=== PATIENT | male | born 1980 | race Two or more races ===

== ENCOUNTER → 2017-05-01 | Outpatient (CLI) | payer OTHER ==
[~2017-05-01] VITALS: Ht 152.4 cm; Wt 81.6 kg
[~2017-05-01] MED LIST: CIPRO500 MG PO; IMODIUM A-D2 MG PO; INTESTINEX1 CAP PO; PHENERGAN25 MG PO; SEPTRA DS TABLE1 TAB PO; TUSSI PRES-B L120 M1 PO; ZANTAC300 MG PO; [UNRECOGNIZED DRUG - OTHER] PO
== END | disposition home or self-care (01) ==
LOC: PPHC 17:38
DX: L01.09 Other impetigo (principal); Z00.8 Encounter for other general examination

== ENCOUNTER 2017-05-31 08:35 | Outpatient (CLI) | payer OTHER | END 2017-05-31 08:36 | disposition home or self-care (01) | LOC: LAB 08:35 | DX: E78.4 Other hyperlipidemia (principal); R30.0 Dysuria; R51 Headache ==

== ENCOUNTER → 2017-05-31 | Outpatient (CLI) | payer OTHER | END | disposition home or self-care (01) | LOC: PPHC 07:50 | DX: Z00.00 Encounter for general adult medical examination without abnormal findings (principal) ==

== ENCOUNTER 2019-11-26 08:00 | Outpatient (CLI) | payer OTHER | END 2019-11-26 15:00 | disposition home or self-care (01) | LOC: PPH VACUNA 08:00 | DX: Z23 Encounter for immunization (principal) ==

== ENCOUNTER 2020-12-10 13:59 | Outpatient (CLI) | payer OTHER | END 2020-12-10 15:02 | disposition home or self-care (01) | LOC: LAB 13:59 | PROVIDERS: ATTEND Emergency Medicine Pediatric Emergency Medicine | DX: R05 Cough (principal); R06.02 Shortness of breath; Z03.818 Encounter for observation for suspected exposure to other biological agents ruled out; Z20.828 Contact with and (suspected) exposure to other viral communicable diseases ==

== ENCOUNTER 2020-12-25 08:00 | Outpatient (CLI) | payer OTHER | END 2020-12-25 08:30 | disposition home or self-care (01) | LOC: PPH VACUNA 08:00 | PROVIDERS: ATTEND Emergency Medicine Pediatric Emergency Medicine | DX: Z23 Encounter for immunization (principal) ==

== ENCOUNTER → 2020-12-25 | Outpatient (CLI) | payer OTHER | END | disposition home or self-care (01) | LOC: PPH VACUNA 08:00 | PROVIDERS: ATTEND Emergency Medicine Pediatric Emergency Medicine | DX: Z23 Encounter for immunization (principal) | CPT/HCPCS: G0008 ==

== ENCOUNTER 2021-03-26 09:00 | Outpatient (CLI) | payer OTHER | END 2021-03-26 09:15 | disposition home or self-care (01) | LOC: PPH VACUNA 09:00 | PROVIDERS: ATTEND Emergency Medicine Pediatric Emergency Medicine | DX: Z23 Encounter for immunization (principal) ==

== ENCOUNTER 2021-11-10 14:00 | Outpatient (CLI) | payer OTHER | END 2021-11-10 14:05 | disposition home or self-care (01) | LOC: PPH VACUNA 14:00 | PROVIDERS: ATTEND Emergency Medicine Pediatric Emergency Medicine | DX: Z23 Encounter for immunization (principal) ==

== ENCOUNTER 2022-05-06 06:43 | Outpatient (CLI) | payer OTHER | END 2022-05-06 06:49 | disposition home or self-care (01) | LOC: LAB 06:43 | PROVIDERS: ATTEND Internal Medicine Cardiovascular Disease | DX: E03.9 Hypothyroidism, unspecified (principal); I10 Essential (primary) hypertension; E11.9 Type 2 diabetes mellitus without complications; E78.2 Mixed hyperlipidemia; N40.0 Benign prostatic hyperplasia without lower urinary tract symptoms; M19.90 Unspecified osteoarthritis, unspecified site; M10.9 Gout, unspecified; E55.9 Vitamin D deficiency, unspecified ==

== ENCOUNTER 2022-12-02 11:30 | Outpatient (CLI) | payer OTHER | END 2022-12-02 11:40 | disposition home or self-care (01) | LOC: PPH VACUNA 11:30 | PROVIDERS: ATTEND Emergency Medicine Pediatric Emergency Medicine | DX: Z23 Encounter for immunization (principal) | CPT/HCPCS: 90686; G0008 ==

== ENCOUNTER 2023-03-01 23:19 | Emergency (ER) | payer OTHER ==
[~2023-03-01] VITALS: Ht 180.3 cm; Wt 81.6 kg
[2023-03-02] MEDS ORDERED: PEPCID40 MG PO (03:03)
[2023-03-02] MEDS ORDERED: MEDROL8 MG PO (03:03)
[2023-03-02] MEDS ORDERED: BENADRYL25 MG PO (03:03)
== END 2023-03-02 03:07 ==
LOC: ER 23:20
DX: L50.8 Other urticaria (principal)